=== PATIENT | female | born 1950 | race Caucasian/White ===

== ENCOUNTER → 2024-10-15 09:48 | Outpatient (CLI) | payer MEDICARE, SELFPAY ==
--- NOTE | 2024-10-15 09:55 | DI.MRI.S_ITS ---
PROCEDURE: MR LUMBAR SPINE WO CON INDICATIONS: RADICULOPATHY TECHNIQUE: Noncontrast sagittal T1 spin echo and T2 fast echo, sagittal STIR, and T2 fast spin echo through the lumbar spine. In cases with scoliosis, additional coronal T2 fast spin echo may be performed. COMPARISON: Outside Film, CR, XR LUMBAR SPINE 2 OR 3 VIEWS [facility], 07/26/2024, 9:08. FINDINGS: Image quality: Excellent. Alignment and Curvature: There is 8 mm anterolisthesis of L4 on L5. Bone Marrow: There is no marrow edema.. No acute vertebral body compression fractures. Spinal Cord: Conus medullaris terminates at the L1 level. Visualized cord demonstrates normal signal and size. Paraspinous Soft Tissues: No paravertebral masses. T12-L1: Diffuse disc bulge and bilateral facet arthrosis is seen with mild central canal stenosis and moderate bilateral neural foraminal narrowing. L1-L2: Mild disc desiccation. No significant disc bulge, canal stenosis or neural foraminal narrowing. L2-L3: Bilateral facet arthrosis is seen. Mild diffuse disc bulge with mild central canal stenosis, no significant neural foraminal narrowing. L3-L4: Disc desiccation. Broad-based disc bulge and bilateral facet arthrosis with hypertrophy of ligamentum flavum causing mild central canal stenosis, moderate to severe left-sided neural foraminal narrowing and [id number] right-sided neural foraminal narrowing. L4-L5: Loss of disc height and disc desiccation. Broad-based disc bulge and bilateral facet arthrosis causing moderate central canal stenosis and severe bilateral neural foraminal narrowing. Bulging disc likely contacting bilateral L4 and L5 nerve roots. L5-S1: Loss of disc height and disc desiccation. Diffuse disc bulge and bilateral facet arthrosis. No significant central canal stenosis, severe bilateral neural foraminal narrowing is seen. Bulging disc likely contacting bilateral L5 nerve roots. IMPRESSION: 1. 8 mm anterolisthesis of L4 on L5. No marrow edema. No acute vertebral body compression fracture. 2. Multilevel spondylitic changes throughout lumbar spine causing various degrees of central canal stenosis and bilateral neural foraminal narrowing more notably at L4-5 and L5-S1 levels as described above. Dictated by: Wayne Luther M.D. on 10/15/2024 at 13:57 Approved by: Wayne Luther M.D. on 10/15/2024 at 14:11
== END ==
LOC: MRI 09:51
PROVIDERS: PCP Orthopaedic Surgery; Referring Provider Orthopaedic Surgery; Visit Provider Physician Assistant Surgical
DX: M43.16 Spondylolisthesis, lumbar region (principal); M47.26 Other spondylosis with radiculopathy, lumbar region; M47.27 Other spondylosis with radiculopathy, lumbosacral region; M48.061 Spinal stenosis, lumbar region without neurogenic claudication; M48.07 Spinal stenosis, lumbosacral region
CPT/HCPCS: 72148